=== PATIENT | female | born 1990 | race Caucasian/White ===

== ENCOUNTER 2019-02-14 00:19 | Emergency (ER) | payer SELFPAY ==
[~2019-02-14] VITALS: Ht 167.6 cm; Wt 108.9 kg
[2019-02-14 00:38] VITALS: BP 140/72
--- NOTE | 2019-02-14 00:43 | NUR ---
PT WHEELCHAIR ASSISTED TO BED
[2019-02-14] MEDS ORDERED: KETOROLAC 30 MG/ML VIAL IM ONE (01:00)
[2019-02-14] MEDS ORDERED: CYCLOBENZAPRINE 10 MG TAB PO ONE (01:00)
[2019-02-14] MEDS ORDERED: IBUPROFEN 800 MG TAB PO ONE (01:05)
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
--- NOTE | 2019-02-14 01:35 | NUR ---
PT REQUESTING WC ASSISTANCE TO RR.
--- NOTE | 2019-02-14 01:59 | NUR ---
PT TAKEN TO XRAY VIA [facility].
--- NOTE | 2019-02-14 02:42 | NUR ---
PT TO BE TRANSFERED TO [facility] FOR [facility]. AWAITING TRANSPORT.
--- NOTE | 2019-02-14 02:54 | NUR ---
PT SLEEPING COMFORTABLY IN BED. AROUSABLE TO VERBAL STIMULI. VSS. SKIN PINK, WARM, DRY. BREATHING EVEN, UNLABORED. PT DENIES PAIN.
--- NOTE | 2019-02-14 03:54 | NUR ---
PT PICKED UP BY [facility].
--- NOTE | 2019-02-14 05:44 | NUR ---
PT RETURNED FROM [facility]IA [facility] AT THIS TIME
[2019-02-14 05:54] VITALS: BP 93/40
--- NOTE | 2019-02-14 06:25 | NUR ---
ALL RESULTS BACK AND NOTED BY ERMD AND FOR D/C
--- NOTE | 2019-02-14 07:00 | NUR ---
Patient discharged with v/s stable. Written and verbal after care instructions given and explained. Patient alert, oriented and verbalized understanding of instructions. Ambulatory with steady gait. All questions addressed prior to discharge. ID band removed. Patient advised to follow up with PMD. Rx of FLEXIREL 10 MG, IBUPROFEN 800MG given. Patient educated on indication of medication including possible reaction and side effects. Opportunity to ask questions provided and answered.
== END 2019-02-14 07:00 | disposition home or self-care (01) ==
LOC: MED 00:19
DX: S39.012A Strain of muscle, fascia and tendon of lower back, initial encounter (principal); R51 Headache; R11.0 Nausea; V89.2XXA Person injured in unspecified motor-vehicle accident, traffic, initial encounter; Y93.89 Activity, other specified; Y92.89 Other specified places as the place of occurrence of the external cause; Y99.8 Other external cause status
CPT/HCPCS: 72080; 81025; 99283; J1885